=== PATIENT | female | born 1985 | race Caucasian/White ===

== ENCOUNTER 2017-02-03 10:01 | Outpatient (CLI) | payer OTHER | END 2017-02-03 10:02 | disposition home or self-care (01) | LOC: SC 10:01 | PROVIDERS: ATTEND Internal Medicine Pulmonary Disease | DX: G47.10 Hypersomnia, unspecified (principal); R06.83 Snoring | CPT/HCPCS: 99203; 99212 ==

== ENCOUNTER 2017-03-05 22:04 | Outpatient (CLI) | payer OTHER | END 2017-03-05 22:05 | disposition home or self-care (01) | LOC: SC 22:04 | PROVIDERS: ATTEND Internal Medicine Pulmonary Disease | DX: G47.9 Sleep disorder, unspecified (principal) | CPT/HCPCS: 95810 ==

== ENCOUNTER 2017-04-07 14:02 | Outpatient (CLI) | payer OTHER | END 2017-04-07 14:03 | disposition home or self-care (01) | LOC: SC 14:02 | PROVIDERS: ATTEND Nurse Practitioner Family | DX: R06.83 Snoring (principal); R53.83 Other fatigue | CPT/HCPCS: 99212; 99214 ==